=== PATIENT | male | born 1985 | race Caucasian/White ===

== ENCOUNTER 2019-02-26 20:46 | Emergency (ER) | payer SELFPAY ==
[~2019-02-26 20:46] MED LIST: Sulfamethoxazole/Trimethoprim 800-160 MG Tab ONE
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
== END 2019-02-26 21:27 | disposition home or self-care (01) ==
LOC: LB.ED 20:46
DX: J32.9 Chronic sinusitis, unspecified (principal); H66.001 Acute suppurative otitis media without spontaneous rupture of ear drum, right ear; H74.02 Tympanosclerosis, left ear; E11.9 Type 2 diabetes mellitus without complications; Z77.22 Contact with and (suspected) exposure to environmental tobacco smoke (acute) (chronic); Z88.0 Allergy status to penicillin; Z91.030 Bee allergy status; Z88.8 Allergy status to other drugs, medicaments and biological substances
CPT/HCPCS: 99283; A9270-GY

== ENCOUNTER 2023-07-05 20:55 | Inpatient (IN) | payer BC ==
[2023-07-05 21:26] LABS: BASOPHILS ABSOLUTE AUTO 0.02 K/uL (0.02-0.10); BASOPHILS PERCENT AUTO 0.2 % (0.0-0.5); EOSINOPHILS ABSOLUTE AUTO 0.09 K/uL (0.04-0.40); HEMATOCRIT 41.8 % (40.0-54.0); HEMOGLOBIN 15.2 g/dL (13.0-18.0); LYMPHOCYTES ABSOLUTE AUTO 3.37 K/uL (1.50-4.00); LYMPHOCYTES PERCENT AUTO 37.2 % (20.0-40.0); MEAN CORPUSCULAR HEMOGLOBIN 28.3 pg (27.0-32.0); MEAN CORPUSCULAR HGB CONC 36.4 g/dL (31.0-35.0); MEAN CORPUSCULAR VOLUME 78 fL (76-96); MONOCYTES ABSOLUTE AUTO 0.78 K/uL (0.20-0.80); MONOCYTES PERCENT AUTO 8.6 % (3.0-10.0); PLATELET COUNT,PLT 398 K/uL (150-400); RED BLOOD CELL COUNT 5.38 M/uL (4.50-6.50); RED CELL DISTRIBUTION WIDTH 12.8 % (11.0-16.0); WHITE BLOOD CELL COUNT,WBC 9.1 K/uL (4.0-11.0)
[2023-07-05] MEDS: Aspirin 81 MG Tab.Chew PO ONE (21:26)
[2023-07-05] MEDS: Nitroglycerin 0.4 MG Tab.SL SL ONE (21:27)
[2023-07-05 21:48] LABS: ALANINE AMINOTRANSFERASE,ALT 22 U/L (12-78); ALBUMIN 3.8 g/dL (3.4-5.0); ALKALINE PHOSPHATASE 136 U/L (46-116); ANION GAP 17.8 mmol/L (5.0-15.0); ASPARTATE AMNIOTRANSFERASE,AST 13 U/L (15-37); BILIRUBIN TOTAL 0.8 mg/dL (0.0-1.0); BLOOD UREA NITROGEN,BUN 31 mg/dL (8-26); BUN/CREATININE RATIO 24.2 (6-25); CALCIUM 9.5 mg/dL (8.5-10.1); CARBON DIOXIDE,CO2 24.4 mmol/L (21.0-32.0); CHLORIDE,CL 92 mmol/L (98-107); CREATININE 1.28 mg/dL (0.70-1.30); ESTIMATED GFR 73 mL/min (>60); POTASSIUM,K 4.2 mmol/L (3.5-5.1); PROTEIN TOTAL,TP 7.6 g/dL (6.4-8.2); SODIUM,NA 130 mmol/L (136-145); TROPONIN I HIGH SENSITIVITY 4.1 pg/ml (<=60.4)
[2023-07-05 21:49] LABS: GLUCOSE RANDOM 492 mg/dL (74-100)
[2023-07-05] MEDS: Sodium Chloride 0.9% 1,000 ML IV ONE (21:55)
[2023-07-05 22:19] LABS: MAGNESIUM 1.9 mg/dL (1.8-2.4); PHOSPHORUS 5.7 mg/dL (2.5-4.9)
[2023-07-05 22:22] LABS: INFLUENZA A NAA NEGATIVE (NEGATIVE); INFLUENZA B NAA NEGATIVE (NEGATIVE); RESPIRATORY SYNCYTIAL VIR NAA NEGATIVE (NEGATIVE)
[2023-07-05] MEDS: Magnesium Sulfate/Water 2 GM in Premix Bag 1 BAG IV ONE (22:37)
[2023-07-05] MEDS: Magnesium Sulfate/Water 50 ML ONE (22:38)
[2023-07-05 22:40] LABS: CORONAVIRUS COVID-19 NAA NEGATIVE (NEGATIVE)
[2023-07-05 22:41] LABS: BASE EXCESS ARTERIAL -2.4 (-2-2); BICARBONATE,ARTERIAL 22.4 mmol/L (22-26); O2 SATURATION ARTERIAL 94.9 % (95-98); PCO2 ARTERIAL 36.2 mmHg (35-45); PO2 ARTERIAL 74.8 mmHg (80-105)
[2023-07-05 22:53] LABS: APPEARANCE,URINE CLEAR (CLEAR); BILIRUBIN,URINE NEGATIVE (NEGATIVE); COLOR,URINE YELLOW; GLUCOSE,URINE >=1000 mg/dL (NEGATIVE); KETONES,URINE NEGATIVE (NEGATIVE); LEUKOCYTE ESTERASE,URINE NEGATIVE (NEGATIVE); NITRITE,URINE NEGATIVE (NEGATIVE); OCCULT BLOOD,URINE NEGATIVE (NEGATIVE); PROTEIN,URINE 30 mg/dL (NEGATIVE); UROBILINOGEN,URINE 0.2 E.U./dL (0.2-1.0)
[2023-07-05] MEDS: Thiamine 100 MG in Sodium Chloride 0.9% 100 ML IV ONE (22:54)
[2023-07-05 23:03] LABS: RBC,URINE 0-5 /HPF
[2023-07-05 23:04] LABS: WBC,URINE 0-5 /HPF
[2023-07-05 23:08] LABS: HEMOGLOBIN A1C 13.2 % (< 5.7)
[2023-07-05] MEDS: Sodium Chloride 0.9% 500 ML IV ONE (23:19)
[2023-07-05] MEDS ORDERED: Melatonin 10 MG Cap PO PRN (23:25)
[2023-07-06 00:26] LABS: ANION GAP 13.6 mmol/L (5.0-15.0); BUN/CREATININE RATIO 26.3 (6-25); CALCIUM 8.7 mg/dL (8.5-10.1); CARBON DIOXIDE,CO2 26.8 mmol/L (21.0-32.0); CREATININE 0.99 mg/dL (0.70-1.30); EST CRCL DRUG DOSING (CG) 76.6 mL/min; POTASSIUM,K 4.4 mmol/L (3.5-5.1)
[2023-07-06] MEDS: Sodium Chloride 0.45% with KCl 1,000 ML IV SCH (01:21)
[2023-07-06] MEDS ORDERED: Glucagon,Human Recombinant 1 MG Vial IM PRN (02:18)
[2023-07-06] MEDS ORDERED: 50% Dextrose in Water 50 ML Syringe IVPUSH PRN (02:18)
[2023-07-06] MEDS: D5 1/2 NS w/ 20 mEq/L KCl 1,000 ML IV SCH (02:34)
[2023-07-06] MEDS: Insulin Regular, Human 100 Units/ML 3 ML Vial SUBCUT SCH ×3 (03:07→11:28)
[2023-07-06] MEDS: Sodium Chloride 0.9% 500 ML IV ONE (06:19)
[2023-07-06 06:20] LABS: ANION GAP 11.8 mmol/L (5.0-15.0); CALCIUM 8.1 mg/dL (8.5-10.1); CARBON DIOXIDE,CO2 26.1 mmol/L (21.0-32.0); CREATININE 0.88 mg/dL (0.70-1.30); EST CRCL DRUG DOSING (CG) 86.17 mL/min; POTASSIUM,K 3.9 mmol/L (3.5-5.1)
[2023-07-06] MEDS: Acetaminophen 325 MG Tab PO PRN (08:23)
[2023-07-06] MEDS: metFORMIN 500 MG Tab.ER PO SCH (17:59)
[2023-07-07 09:23] LABS: ANION GAP 11.1 mmol/L (5.0-15.0); BUN/CREATININE RATIO 17.9 (6-25); CALCIUM 8.4 mg/dL (8.5-10.1); CARBON DIOXIDE,CO2 28.2 mmol/L (21.0-32.0); CREATININE 0.67 mg/dL (0.70-1.30); EST CRCL DRUG DOSING (CG) 113.18 mL/min; POTASSIUM,K 4.3 mmol/L (3.5-5.1)
[2023-07-07] MEDS: metFORMIN 500 MG Tab PO SCH (17:26)
== END 2023-07-08 09:50 | disposition home or self-care (01) | DRG 420 ==
LOC: LB.ED 20:55 → LB.MS 22:09
PROVIDERS: ADMIT Surgery; ATTEND Surgery
PROC: 0T9B70Z Drainage of Bladder with Drainage Device, Via Natural or Artificial Opening (ICD-10-PCS; principal; 2023-07-05)
PROC: 4A033R1 Measurement of Arterial Saturation, Peripheral, Percutaneous Approach (ICD-10-PCS; 2023-07-05)
DX: E11.65 Type 2 diabetes mellitus with hyperglycemia (principal); T38.3X6A Underdosing of insulin and oral hypoglycemic [antidiabetic] drugs, initial encounter; Z91.128 Patient's intentional underdosing of medication regimen for other reason; E86.0 Dehydration; G47.30 Sleep apnea, unspecified; F32.A Depression, unspecified; Z91.030 Bee allergy status; Z88.0 Allergy status to penicillin; Z88.8 Allergy status to other drugs, medicaments and biological substances; Z11.52 Encounter for screening for COVID-19
CPT/HCPCS: 0241U; 36415; 36600; 71045; 80048; 80053; 81001; 82803; 82947; 83036; 83605; 83690; 83735; 84100; 84484; 85025; 85379; 93005; 99222; 99232; 99238; 99285; A9270-GY; J1815-GY; J3411; J3475; J3480; J3490; J7030; J7040

== ENCOUNTER 2023-10-04 16:12 | Emergency (ER) | payer BC ==
[2023-10-04] MEDS ORDERED: Sodium Chloride 0.9% 10 ML Syringe FLUSH PRN (16:46)
[2023-10-04 17:18] LABS: A/G RATIO 1.2 (0.8-2.0); ANION GAP 15.3 mmol/L (5.0-15.0); BUN/CREATININE RATIO 15.9 (6-25); CALCIUM 9.1 mg/dL (8.5-10.1); CARBON DIOXIDE,CO2 24.9 mmol/L (21.0-32.0); CREATININE 1.32 mg/dL (0.70-1.30); EST CRCL DRUG DOSING (CG) 57.45 mL/min; POTASSIUM,K 4.2 mmol/L (3.5-5.1); PROTEIN TOTAL,TP 7.3 g/dL (6.4-8.2)
[2023-10-04] MEDS: Sodium Chloride 0.9% 1,000 ML IV SCH (18:16)
[2023-10-04] MEDS: Prochlorperazine 10 MG/2 ML SDV IVPUSH ONE (18:31)
[2023-10-04] MEDS: diphenhydrAMINE 50 MG/ML SDV IVPUSH ONE (18:31)
[2023-10-04] MEDS: diphenhydrAMINE 50 MG/ML SDV ONE (18:37)
[2023-10-04] MEDS: Prochlorperazine 10 MG/2 ML SDV ONE (18:37)
== END 2023-10-04 19:45 | disposition home or self-care (01) ==
LOC: LB.ED 16:12
DX: G43.909 Migraine, unspecified, not intractable, without status migrainosus (principal); E11.9 Type 2 diabetes mellitus without complications; Z91.030 Bee allergy status; Z88.0 Allergy status to penicillin; Z88.8 Allergy status to other drugs, medicaments and biological substances
CPT/HCPCS: 36415; 80053; 82947; 96361; 96374; 96375; 99283; 99284-25; J0780; J1200; J7030

== ENCOUNTER 2024-05-04 02:30 | Emergency (ER) | payer BC ==
[2024-05-04] MEDS ORDERED: Azithromycin 250 MG Tab ONE (03:00)
[2024-05-04 06:44] LABS: INFLUENZA A NAA NEGATIVE (NEGATIVE); INFLUENZA B NAA NEGATIVE (NEGATIVE); RESPIRATORY SYNCYTIAL VIR NAA NEGATIVE (NEGATIVE)
[2024-05-04 06:46] LABS: CORONAVIRUS COVID-19 NAA POSITIVE (NEGATIVE)
== END 2024-05-04 03:15 | disposition home or self-care (01) ==
LOC: LB.ED 02:30
DX: U07.1 COVID-19 (principal); J02.9 Acute pharyngitis, unspecified; E11.9 Type 2 diabetes mellitus without complications; Z88.0 Allergy status to penicillin; Z88.8 Allergy status to other drugs, medicaments and biological substances; Z91.030 Bee allergy status; Z79.84 Long term (current) use of oral hypoglycemic drugs; Z79.899 Other long term (current) drug therapy
CPT/HCPCS: 0241U; 87651; 99283; A9270

== ENCOUNTER 2024-07-27 06:21 | Emergency (ER) | payer BC, OTHER ==
[2024-07-27 07:44] LABS: INFLUENZA A NAA NEGATIVE (NEGATIVE); INFLUENZA B NAA NEGATIVE (NEGATIVE); RESPIRATORY SYNCYTIAL VIR NAA NEGATIVE (NEGATIVE)
[2024-07-27 08:05] LABS: CORONAVIRUS COVID-19 NAA NEGATIVE (NEGATIVE)
[2024-07-27] MEDS: cefTRIAXone 1 GM Vial IM ONE (08:21)
== END 2024-07-27 08:45 | disposition home or self-care (01) ==
LOC: LB.ED 06:21
DX: J02.9 Acute pharyngitis, unspecified (principal); E11.9 Type 2 diabetes mellitus without complications; Z91.030 Bee allergy status; Z88.0 Allergy status to penicillin; Z88.8 Allergy status to other drugs, medicaments and biological substances; Z79.84 Long term (current) use of oral hypoglycemic drugs; Z79.899 Other long term (current) drug therapy; Z86.16 Personal history of COVID-19
CPT/HCPCS: 0241U; 87651; 96372; 99283; J0696